=== PATIENT | female | born 1950 | race Caucasian/White ===

== ENCOUNTER 2024-04-27 09:07 | Emergency (ER) | payer MEDICARE, OTHER, SELFPAY ==
[2024-04-27] VITALS (8 sets, daily range): BP systolic 97–158; BP diastolic 69–115; PULSE 75–91; BMI 33.1
[2024-04-27 10:04] LABS: Hematocrit 36.4 % (37.0-47.0); Hemoglobin 13.2 g/dL (12.0-16.0); Mean Corp Hgb Conc. 36.3 g/dL (33.0-37.0); Mean Corpuscular Hgb 32.5 pg (27.0-31.0); Mean Corpuscular Volume 89.7 fL (81.0-99.0); Mean Platelet Volume 11.2 fL (7.4-10.4); Platelet Count 218 10^3/uL (130-400); Red Blood Cell Count 4.06 10^6/uL (4.20-5.40); Red Cell Dist. Width 11.5 % (11.5-14.5); White Blood Cell Count 7.1 10^3/uL (4.8-10.8)
--- NOTE | 2024-04-27 10:20 | ED.GENMED ---
History of Present Illness
General
Chief Complaint: Fainting/Passed Out
Source: patient
Time Seen by Provider: 04/27/24 09:36
History of Present Illness
History of Present Illness:
73-year-old female with past medical history of hypertension presenting to the emergency department for evaluation after she was at [facility] and had a witnessed syncopal episode by her . Patient reports that she was sitting in the pew when she
started to feel lightheaded and felt as if her vision went white and then reports that he looked over and saw the patient slumped over towards the pew in front of them. Patient awoke after about 30 seconds and brought the patient
outside and into the car where she seemed still out of it. Upon arrival to the emergency department patient reports that she is fully asymptomatic and feels well. Patient does note the last 2 to 3 days she has felt a little bit fatigued and has
had some chills and some mild upper abdominal discomfort with some decreased oral intake to both solids and liquids. Patient states she actually feels a little bit better today than she did yesterday. No known sick contacts, recent travel or
recent antibiotics. Patient is unaware of any fevers at home. She reports good compliance with all medications although does note she did not take her antihypertensive medication today as she planned on doing that after getting home from [facility].
Past History
Past History
ED Past Medical History: HTN and Hypothyroidism
ED Past Surgical History: Appendectomy and Gynecological
Social History
Tobacco: Non-smoker
Alcohol: Occasional
Drug: None
Personal:
Living: with family
Employment: Employed
Review of Systems
Review of Systems
All Other Systems: ROS reviewed and negative except as documented in HPI and ROS
Phy Exam
Physical Exam
Physical Exam:
GENERAL: Alert , in no apparent distress
EYE: clear conjunctiva b/l
HEAD: NCAT
ENT: o/p clr, mmm.
CARDIAC: Regular rate and rhythm
LUNGS: Clear breath sounds bilaterally, no acute respiratory distress, no wheezes/rales/rhonchi
ABDOMEN: Soft, without focal tenderness, no r/g, no cvat
NEUROLOGICAL: Alert and oriented
SKIN: Warm and dry, skin intact.
MUSCULOSKELETAL: No edema, well perfused.
PSYCH: Normal and appropriate interaction.
Scores
Heart Failure Risk
Heart Failure Risk Score: Not Applicable
Heart Score for Chest Pain Patients
STEMI patient?: Not applicable
Withdrawal Assessment of Alcohol
Withdrawal Assessment Completed?: Not applicable
Course
Orders/Labs/Results
Orders:
Orders
04/27/24 09:44
Electrocardiogram (*1) Urgent
Reason for Study: Syncope
EKG- Treatment ONCE
04/27/24 09:56
CMP [Comprehensive Metabolic Panel] Urgent
Complete Blood Count/No Diff Urgent
04/27/24 10:07
Orthostatic VS- Treatment ONCE
04/27/24 10:21
Add On- LAB Urgent
Tests Added?: troponin
Abnormal Lab Results
04/27/24
09:56
RBC 4.06 L 10^6/uL
(4.20-5.40)
Hct 36.4 L %
(37.0-47.0)
MCH 32.5 H pg
(27.0-31.0)
MPV 11.2 H fL
(7.4-10.4)
Glucose 132 H mg/dl
(70-99)
Calcium 10.9 H mg/dl
(8.4-10.2)
AST 49 H U/L
(14-36)
ALT 61 H U/L
(0-35)
04/27/24 09:56
04/27/24 09:56
Vital Signs
Initial and Last Documented VS:
Initial Vital Signs
Temp Pulse Resp BP Pulse Ox
98.7 F 84 18 97/69 97
04/27/24 09:19 04/27/24 09:19 04/27/24 09:19 04/27/24 09:19 04/27/24 09:19
Last Documented Vital Signs
Temp Pulse Resp BP Pulse Ox
98.7 F 92 17 157/85 96
04/27/24 09:19 04/27/24 11:45 04/27/24 11:45 04/27/24 11:00 04/27/24 09:45
MDM/Problems Addressed
Differential Diagnosis Includes:
vagal event, cardiac dysrythmia/arrythmia, dehydration, electrolyte disturbance, covid/viral syndrome
MDM/Problems Addressed:
73-year-old female presenting to the emergency department for evaluation after syncopal event while at [facility] earlier this morning. Presently asymptomatic. Over the last couple of days has been feeling a little unwell with some decreased p.o.
intake. Certainly possible some mild dehydration. Patient states she did have a half a cup of coffee and Ensure prior to going to [facility] today. She is afebrile and otherwise hemodynamically stable here. Slightly hypertensive. Will check labs,
EKG, troponin given the upper abdominal discomfort yesterday, COVID and orthostatic vitals. Anticipate discharge home following workup.
Chronic conditions affecting care: HTN
*Pulse Oximetry
Patient hypoxic: no
*EKG
Interpreted by ED Provider?: Yes
Heart Rate: 76
Rate: normal
Rhythm: sinus
Ischemia: no ischemia
*Wood Miller Interpretation
Rate: normal
Rhythm: sinus
*Critical Care Note
Total Time (30-74mins, 75-104mins- exclusive of procedures): Not Applicable
Data Reviewed
Review of Other/Old Records Reveals: Labs (appears to have a mild chronic LFT elevation)
Patient Management
Escalation/DeEscalation of care consider admission/obs:
Following IV fluids patient is feeling significantly better. She feels comfortable being discharged home. Advised on close follow-up with primary care provider. Discussed return precautions to the emergency department. Otherwise stable for
discharge home.
ED Attending Note
-
Portions of this chart may have been created with voice recognition software.� Occasional wrong word or��sound alike� substitutions may have occurred due to the inherent limitations of voice recognition software.
Discharge Plan
Departure
Patient Disposition: Home (Routine Discharge)
Date of Disposition: 04/27/24
Time of Disposition: 12:04
Patient with high blood pressure during this ER visit?: Yes
Discharge Problem:
Syncope
Instructions: Syncope (Fainting) (DC)
Prescriptions:
No Action
levothyroxine 75 MCG tablet
75 mcg PO DAILY
lisinopril 10 MG tablet
10 mg PO DAILY
Referrals:
Priscilla Campoverde MD [Family Provider] -
Stand Alone Forms: Return to Work
Interventions
Interventions:
*Risk Screen - Suicide Last Done: 04/27/24 09:19
*General Assessment Last Done: 04/27/24 09:19
*Neglect/Abuse Screening Last Done: 04/27/24 09:19
ED- Fall Risk Assessment Last Done: 04/27/24 09:45
*ED COVID-19 Vaccine History Last Done: 04/27/24 09:45
ED- Cardiac Assessment Last Done: 04/27/24 09:57
ED- Neurological Assessment Last Done: 04/27/24 09:57
Discharge Date and Time
Print Language: PAKISTANI
[2024-04-27 10:23] LABS: ALT (SGPT) 61 U/L (0-35); AST (SGOT) 49 U/L (14-36); Alkaline Phosphatase 86 U/L (38-126); Blood Urea Nitrogen 10 mg/dl (7-17); Calcium 10.9 mg/dl (8.4-10.2); Carbon Dioxide 25 mmol/L (22-30); Chloride 107 mmol/L (98-107); Estimated Creatinine Clearance 67 ml/min; Glucose 132 mg/dl (70-99); Sodium 139 mmol/L (135-145); Total Bilirubin 0.8 mg/dl (0.2-1.3); Total Protein 6.4 g/dl (6.3-8.2); eGFR > 60.00
--- NOTE | 2024-04-27 10:42 | EDRN ---
[place] too ' woozy' to stand
== END 2024-04-27 12:34 | disposition home or self-care (01) ==
LOC: EMR 09:07
PROVIDERS: Physician Assistant Medical; EMERGENCY PHYSICIAN Emergency Medicine; FAMILY PHYSICIAN Family Medicine
DX: R55 Syncope and collapse (principal); R10.10 Upper abdominal pain, unspecified; I10 Essential (primary) hypertension; E03.9 Hypothyroidism, unspecified; Z91.018 Allergy to other foods
CPT/HCPCS: 99283; 80053; 85027; 93005

== ENCOUNTER 2024-05-03 10:12 | Emergency (ER) | payer MEDICARE, OTHER, SELFPAY ==
[2024-05-03] VITALS (7 sets, daily range): BP systolic 141–165; BP diastolic 84–94; BMI 32.7
--- NOTE | 2024-05-03 10:44 | ED.GENMED ---
History of Present Illness
General
Chief Complaint: Chest Pain
Source: patient
Exam Limitations: none
Time Seen by Provider: 05/03/24 10:44
Nursing documentation reviewed up to this point in time: agreed with
History of Present Illness
History of Present Illness:
This is a 73 y/o female with PMH of hypertension, hypothyroidism presenting to emergency department today with concerns of chest pain since this morning. Patient reports that she woke up this morning and started to feel a bit dizzy which she
describes as a room spinning sensation. Patient states that she than went to the bathroom and she then started to feel chest pain in the middle of her chest. She states that her gave her aspirin and she states that this improve the pain
but then eventually the pain came back on. Patient denies any nausea or vomiting, any syncopal episodes. Patient denies any difficulty with ambulating. Patient also notes left arm paresthesias that started this morning with these other symptoms.
Patient denies palpitations, shortness of breath. Patient denies personal history of cardiac disease. Patient denies neck pain. Patient does not regularly follow with a primary care provider. Patient does nont smoke. Patient denies any visual
changes.
Past History
Past History
ED Past Medical History: HTN and Hypothyroidism
ED Past Surgical History: Appendectomy and Gynecological
Social History
Tobacco: Non-smoker
Alcohol: Occasional
Drug: None
Personal:
Living: with family
Employment: Employed
Review of Systems
Review of Systems
All Other Systems: ROS reviewed and negative except as documented in HPI and ROS
Phy Exam
Physical Exam
Physical Exam:
General: Patient is well appearing and in no acute distress; non-toxic
Skin: Warm and dry, no rashes or lesions
Head: Normocephalic, atraumatic
Eyes: Sclera non-icteric. EOMs intact. No nystagmus.
Cardiac: Regular rate and rhythm, no murmurs. Mild tenderness to palpation of the external chest wall.
Pulm: Normal respiratory effort, no wheezes, rales, or rhonchi.
Abdomen: No abdominal tenderness to palpation to palpation.
Neuro: CN II-XII intact, no focal neurologic deficits. Sensation intact to light touch bilaterally. Sensation equal bilaterally. Normal gait, no ataxia. 5/5 strength in bilateral upper and lower extremities.
Psychiatric: Appropriate mood and affect.
Scores
NIH Stroke Score
Level of Consciousness: 0 - Alert
LOC Questions: 0-Answers both correctly
LOC Commands: 0-Performs both correctly
Best Horizontal Gaze: 0-Normal
Visual Ortega: 0=Normal, no visual loss
Facial Palsy: 0=Normal, symmetrical
Motor - Right Arm: 0=No drift 10 seconds
Motor - Left Arm: 0=No drift 10 seconds
Motor - Right Le-No drift 5 seconds
Motor - Left Le-No drift 5 seconds
Limb Ataxia: 0-Absent
Sensation: 0-Normal
Best Language: 0-No aphasia
Dysarthria: 0-Normal
Extinction and Inattention: 0-No abnormality
Total Score:: 0
Heart Score for Chest Pain Patients
STEMI patient?: No
History: Slightly or Non-Suspicious
ECG: Normal
Age: >/= 65 years
Risk Factors: 1 or 2 Risk Factors
Troponin: </= Normal Limit
Heart Score for Chest Pain Patients: 3
Heart Score Risk: 2.5% MACE over next 6 weeks
Course
Orders/Labs/Results
Orders:
Orders
05/03/24 10:14
Electrocardiogram (*1) Urgent
Reason for Study: Chest Pain
EKG- Treatment ONCE
05/03/24 10:43
CXR2 [CR Chest - 2 Views ] Urgent
Comment:
Reason For Exam: chest pain with SOB
05/03/24 10:46
Complete Blood Count/With Diff Urgent
Comprehensive Metabolic Panel Urgent
Troponin I Urgent
05/03/24 12:10
Cardiac Monitoring- Treatment ONCE
05/03/24 13:21
CT Head & Neck Angio W/wo IV Urgent
Reason For Exam: persistent vertigo, left arm numbness
05/03/24 13:31
Troponin I Urgent
05/03/24 13:43
Electrocardiogram (*1) Urgent
Reason for Study: Chest Pain
Abnormal Lab Results
05/03/24
10:46
RBC 4.08 L 10^6/uL
(4.20-5.40)
Hct 36.1 L %
(37.0-47.0)
MCH 32.4 H pg
(27.0-31.0)
MPV 11.6 H fL
(7.4-10.4)
Absolute Monos (auto) 1.1 H 10^3/uL
(0.1-0.6)
Neutrophils % 38.3 L %
(42.2-75.2)
Monocytes % 13.7 H %
(1.7-9.3)
Eosinophils % 6.8 H %
(0-6)
Calcium 11.1 H mg/dl
(8.4-10.2)
AST 61 H U/L
(14-36)
ALT 74 H U/L
(0-35)
05/03/24 10:46
05/03/24 10:46
Vital Signs
Initial and Last Documented VS:
Initial Vital Signs
Temp Pulse Resp BP Pulse Ox
98.3 F 83 20 150/84 95
05/03/24 10:27 05/03/24 10:27 05/03/24 10:27 05/03/24 10:27 05/03/24 10:27
Last Documented Vital Signs
Temp Pulse Resp BP Pulse Ox
98.5 F 81 18 149/94 95
05/03/24 13:00 05/03/24 14:45 05/03/24 14:45 05/03/24 14:43 05/03/24 14:45
MDM/Problems Addressed
Differential Diagnosis Includes:
ddx include ACS, posterior circulation stroke, carotid stenosis, BPPV, cervical radiculopathy costochondritis
MDM/Problems Addressed:
Dizziness, chest pain, paresthesias:
This is a 73 y/o female with PMH of hypertension, hypothyroidism presenting to emergency department today with concerns of chest pain since this morning. Patient reports that she woke up this morning and started to feel a bit dizzy which she
describes as a room spinning sensation. Patient states that she than went to the bathroom and she then started to feel chest pain in the middle of her chest. Patient also has left arm paresthesias.
Currently, she has no vertigo. It comes and goes. On exam, she is well appearing and in no acute distress. Heart RRR. She has no nystagmus, normal gate, no dysmetria. Her CBC and CMP unremarkable. Troponin's non-suspicious for ACS. EKG shows normal
sinus rhythm unchanged from prior EKG. Considering patients persistent vertigo and left paresthesias, CTA of head and neck was obtained which is negative for head bleed, negative for significant narrowing of vessels. I spoke to Dr. Finley neurologist
deputy controller and reviewed case, believes patient can be discharged and followed as an outpatient, no indication for full stroke work up at this time.
In terms of patient's chest pain, patient has never been evaluated by a collar baster jumpb[facility] before. Discussed with patient her risk factors and importance of full evaluation. Patient expressed understanding, hotline provided. Patient stable for
discharge.
*Pulse Oximetry
Patient hypoxic: no
*EKG
Interpreted by ED Provider?: Yes
EKG Intrepretation Date: 05/03/24
Interpretation: normal
Comparison EKG: no comparison EKG present
Heart Rate: 79
Rate: normal
Rhythm: sinus
[place]: normal axis
Interval: normal interval
QRS Pattern: normal QRS
Ischemia: no ischemia
*Clinical Pharmacy Technician Interpretation
Rate: normal
Interpretation: normal
Heart Rate: 75
Rhythm: sinus
*Critical Care Note
Total Time (30-74mins, 75-104mins- exclusive of procedures): Not Applicable
Data Reviewed
Review of Other/Old Records Reveals: Records (reviewed ER physician documentation from 04/27/24)
Source: patient and records
Prescriptions/Medications Considered But Not Given:
n/a
Further Testing Considered But Not Given:
n/a
Patient Management
Escalation/DeEscalation of care consider admission/obs:
Reviewed case with my attending Dr. Garcia, patient stable for discharge.
ED Attending Note
-
Portions of this chart may have been created with voice recognition software.� Occasional wrong word or��sound alike� substitutions may have occurred due to the inherent limitations of voice recognition software.
Discharge Plan
Departure
Patient Disposition: Home (Routine Discharge)
Date of Disposition: 05/03/24
Time of Disposition: 14:55
Patient with high blood pressure during this ER visit?: Yes
Condition: Good
Discharge Problem:
Chest pain, Dizziness
Instructions: Dizziness, Adult ED, Chest Pain CBC Follow Up, BLOOD PRESSURE
Prescriptions:
No Action
levothyroxine 75 MCG tablet
75 mcg PO DAILY
lisinopril 10 MG tablet
10 mg PO DAILY
Referrals:
Priscilla Campoverde MD [Family Provider] -
Stand Alone Forms: Return to Work
Activity Restrictions/Additional Instructions:
Please call the attached number to schedule appointment with collar baster jumpb[facility].
Please follow up with your primary care provider.
Please return to the emergency department should you experience new or worsening symptoms, shortness of breath, lightheadedness, persistent headache, neck pain, visual loss, fevers or chills, or any other concerning signs or symptoms.
Interventions
Interventions:
*Risk Screen - Suicide Last Done: 05/03/24 10:47
*General Assessment Last Done: 05/03/24 10:47
*Neglect/Abuse Screening Last Done: 05/03/24 10:47
ED- Fall Risk Assessment Last Done: 05/03/24 10:47
*ED COVID-19 Vaccine History Last Done: 05/03/24 10:47
*Nursing Disposition Last Done: 05/03/24 15:03
ED- Cardiac Assessment Last Done: 05/03/24 10:47
Discharge Date and Time
Discharge Date/Time: 05/03/24 15:58
Print Language: ARABIC
[2024-05-03 11:12] LABS: % Basophils 1.4 % (0-2); % Eosinophils 6.8 % (0-6); % Immature Granulocytes 0.3 % (0-0.5); % Lymphocytes 39.5 % (20.5-51.1); % Monocytes 13.7 % (1.7-9.3); % Neutrophils 38.3 % (42.2-75.2); Absolute Basophils 0.1 10^3/uL (0-0.2); Absolute Eosinophils 0.5 10^3/uL (0-0.7); Absolute Lymphocytes 3.1 10^3/uL (1.2-3.4); Absolute Monocytes 1.1 10^3/uL (0.1-0.6); Hematocrit 36.1 % (37.0-47.0); Hemoglobin 13.2 g/dL (12.0-16.0); Mean Corp Hgb Conc. 36.6 g/dL (33.0-37.0); Mean Corpuscular Hgb 32.4 pg (27.0-31.0); Mean Corpuscular Volume 88.5 fL (81.0-99.0); Mean Platelet Volume 11.6 fL (7.4-10.4); Nucleated Red Blood Cells % 0 %; Platelet Count 226 10^3/uL (130-400); Red Blood Cell Count 4.08 10^6/uL (4.20-5.40); Red Cell Dist. Width 11.6 % (11.5-14.5); White Blood Cell Count 7.8 10^3/uL (4.8-10.8)
[2024-05-03 11:26] LABS: ALT (SGPT) 74 U/L (0-35); AST (SGOT) 61 U/L (14-36); Albumin 4.1 g/dl (3.5-5.0); Alkaline Phosphatase 85 U/L (38-126); Blood Urea Nitrogen 14 mg/dl (7-17); Calcium 11.1 mg/dl (8.4-10.2); Carbon Dioxide 27 mmol/L (22-30); Chloride 106 mmol/L (98-107); Estimated Creatinine Clearance 78 ml/min; Glucose 93 mg/dl (70-99); Potassium 4.2 mmol/L (3.5-5.1); Sodium 142 mmol/L (135-145); Total Bilirubin 0.9 mg/dl (0.2-1.3); Total Protein 6.6 g/dl (6.3-8.2); eGFR > 60.00
[2024-05-03 11:39] LABS: Troponin I 0.014 ng/ml
[2024-05-03 14:11] LABS: Troponin I 0.023 ng/ml
--- NOTE | 2024-05-03 14:12 | EDRN ---
second troponin came back elevated, this RN notified [facility]
--- NOTE | 2024-05-03 15:08 | EDRN ---
the pts stated to this RN as this RN was giving him discharge instructions that he just felt the right side of his 's neck and found a lump that he states he can feel and he is wondering if that has anything to do with the dizziness that
she is experiencing, this RN will notify [facility], the pt and the pts do not want to leave until the pt gets reevaluated, the pt is sitting on the chair, will continue to monitor the pt closely
--- NOTE | 2024-05-03 15:24 | EDRN ---
[facility] is currently at the pts bedside speaking with the pt and the pts
== END 2024-05-03 15:58 | disposition home or self-care (01) ==
LOC: EMR 10:12
PROVIDERS: Physician Assistant; EMERGENCY PHYSICIAN Emergency Medicine; FAMILY PHYSICIAN Family Medicine
DX: R07.89 Other chest pain (principal); R42 Dizziness and giddiness; R20.0 Anesthesia of skin; R22.1 Localized swelling, mass and lump, neck; I10 Essential (primary) hypertension; E03.9 Hypothyroidism, unspecified; Z91.018 Allergy to other foods
CPT/HCPCS: 99285; 70496; 70498; 71046; 80053; 84484; 85025; 93005; Q9967

== ENCOUNTER 2024-05-10 10:46 | Inpatient (IN) | payer MEDICARE, OTHER, SELFPAY ==
[2024-05-06] VITALS (10 sets, daily range): BP systolic 90–129; BP diastolic 63–82; PULSE 79–98; BMI 33.6; BMI 32.0
[2024-05-06 13:09] LABS: % Basophils 1.1 % (0-2); % Eosinophils 5.1 % (0-6); % Immature Granulocytes 0.3 % (0-0.5); % Lymphocytes 45.7 % (20.5-51.1); % Monocytes 12.3 % (1.7-9.3); % Neutrophils 35.5 % (42.2-75.2); Absolute Basophils 0.1 10^3/uL (0-0.2); Absolute Eosinophils 0.4 10^3/uL (0-0.7); Absolute Lymphocytes 3.4 10^3/uL (1.2-3.4); Absolute Monocytes 0.9 10^3/uL (0.1-0.6); Absolute Neutrophils 2.7 10^3/uL (1.4-6.5); Hematocrit 35.8 % (37.0-47.0); Hemoglobin 12.8 g/dL (12.0-16.0); Mean Corp Hgb Conc. 35.8 g/dL (33.0-37.0); Mean Corpuscular Hgb 32.9 pg (27.0-31.0); Mean Platelet Volume 11.5 fL (7.4-10.4); Nucleated Red Blood Cells % 0 %; Platelet Count 215 10^3/uL (130-400); Red Blood Cell Count 3.89 10^6/uL (4.20-5.40); Red Cell Dist. Width 11.6 % (11.5-14.5); White Blood Cell Count 7.5 10^3/uL (4.8-10.8)
--- NOTE | 2024-05-06 13:39 | ED.GENMED ---
History of Present Illness
General
Chief Complaint: Fainting/Passed Out
Source: patient
Time Seen by Provider: 05/06/24 13:20
History of Present Illness
History of Present Illness:
73-year-old female presents to the emergency room after having a syncopal episode. Patient was sitting on her porch in a rocking chair when she began to feel unwell. She lightheaded and a sense of doom. She became diaphoretic unresponsive. She
quickly regained consciousness but then passed out again. She again regained consciousness and was complaints of chest pain. No edema sublingual nitro which made her worse. Paramedics arrived and found the patient presently hypotensive. She was
given a bolus of IV fluid. This is the third visit for the patient here to deal send emergency room the past couple weeks. She was last seen 3days ago for dizziness and chest pain. Patient had a follow-up appointment with cardiology yesterday. An
outpatient echo and stress test was ordered. Patient was prescribed medication but she does not know the names.
Past History
Past History
ED Past Medical History: HTN and Hypothyroidism
ED Past Surgical History: Appendectomy and Gynecological
Social History
Tobacco: Non-smoker
Alcohol: Occasional
Drug: None
Personal:
Living: with family
Employment: Employed
Phy Exam
Physical Exam
Physical Exam:
General: Awake, Alert, Oriented X3. No acute distress.
Vitals: unremarkable
Head: Atraumatic
Eyes: Pupils equal, EOMI
Throat: Airway intact, no exudates
Neck: Trachea midline
Lungs: Clear and equal b/l
Heart: Regular rate, no murmurs
Abd: Soft, Nontender, No pulsatile mass
Neuro: Cranial nerves intact, muscle strength equal bilaterally
Skin: Warm, dry, no rash
Extremities: pulses equal b/l, no edema
Course
Orders/Labs/Results
Orders:
Orders
05/06/24 12:43
Electrocardiogram (*1) Urgent
Reason for Study: Chest Pain
Cardiac Monitoring- Treatment ONCE
EKG- Treatment ONCE
IV Insert/Care/Rem.- Treatment PRN
O2 Therapy [RESP] Urgent
Titrate/Wean O2 to maintain O2 sat greater than (%): 90
Special Instructions: Maintain sats >/=90%
Pulse Ox/spot Check [RESP] Urgent
Quantity: 1
Special Instructions: ON ROOM AIR
05/06/24 12:51
Complete Blood Count/With Diff Urgent
05/06/24 13:38
CT Chest Angio W/wo Iv Contras Urgent
Comment:
Reason For Exam: chest pain, syncope, eval for dissection
Comprehensive Metabolic Panel Urgent
Troponin I Urgent
05/06/24 Dinner
Regular
At Your Request: Full Participation
Does patient need a safe tray?: No
05/06/24 18:01
Admit/Transfer Patient As Directed
Co-Sign Provider:
Level of Care: Observation services
Assign to:: Telemetry
Physician / Group: karine
Diagnosis: syncope
Reason for Telemetry: Chest Pain syndromes
Date to Stop Telemetry: 05/08/24
Time to Stop Telemetry: 11:00
PRN Pain Medication Management As Directed
May give lesser potent ordered pain med per pt: Yes
preference::
Protocol:: Medication orders for pain may be administered in a
manner that supports deferring to patient preference
when the pt is:
- Requesting an ordered lesser potent pain medication.
Least to most potent pain medications are defined
as: acetaminophen < NSAID < tramadol < opioids
(morphine, oxycodone, hydromorphone).
- Requesting a lesser dose of the same medication IF
ORDERED.
- Requesting a less intrusive route of administration
if both routes are prescribed by the provider (PO <
IV).
05/06/24 18:02
Code Status As Directed
Resuscitation Status: Full Code
05/06/24 19:15
Acetaminophen [Tylenol] 650 mg PO Q4HPRN PRN
05/06/24 19:15
Activity As Directed
Activity Level: As Tolerated
Orthostatic Vital Signs As Directed
Orthostatic VS Frequency: Daily
Vital Signs As Directed
Frequency: Per unit guidelines
DX Deep Vein Thrombosis Video Routine
05/06/24 19:35
Troponin I Q6H
05/06/24 20:00
Heparin 5,000 units SC Q12
05/07/24 01:15
Troponin I Q6H
05/07/24 06:00
Complete Blood Count/With Diff IN AM
Comprehensive Metabolic Panel IN AM
Levothyroxine [Synthroid] 75 mcg PO DAILY@0600
05/07/24 07:15
Troponin I Q6H
05/07/24 08:00
Aspirin Chewable [Low Strength Aspirin] 81 mg PO DAILY
ISOSORBIDE MONOnitrate ER [Imdur (Extended Release)] 30 mg PO DAILY
Metoprolol Xl [Toprol Xl] 25 mg PO DAILY
05/08/24 11:00
DC Protocol for Telemetry ONCE
Abnormal Lab Results
05/06/24 05/06/24
12:51 13:38
RBC 3.89 L 10^6/uL
(4.20-5.40)
Hct 35.8 L %
(37.0-47.0)
MCH 32.9 H pg
(27.0-31.0)
MPV 11.5 H fL
(7.4-10.4)
Absolute Monos (auto) 0.9 H 10^3/uL
(0.1-0.6)
Neutrophils % 35.5 L %
(42.2-75.2)
Monocytes % 12.3 H %
(1.7-9.3)
Glucose 105 H mg/dl
(70-99)
Calcium 10.8 H mg/dl
(8.4-10.2)
AST 44 H U/L
(14-36)
ALT 57 H U/L
(0-35)
05/06/24 13:36
05/06/24 13:38
Vital Signs
Initial and Last Documented VS:
Initial Vital Signs
Pulse Resp Pulse Ox
82 20 97
05/06/24 12:49 05/06/24 12:49 05/06/24 12:49
Last Documented Vital Signs
Temp Pulse Resp BP Pulse Ox
98.2 F 79 18 122/77 97
05/06/24 19:49 05/06/24 19:49 05/06/24 19:49 05/06/24 19:49 05/06/24 19:49
MDM/Problems Addressed
Differential Diagnosis Includes:
Vasovagal syncope, orthostatic hypotension, cardiac dysrhythmia
MDM/Problems Addressed:
Patient presents to the emergency room again for syncope. She has had no dysrhythmia on the monitor technician while here. Workups during previous ER visits for unremarkable. Labs today are also unremarkable. Given the patient has had 2 syncopal
episodes and another visit for chest pain a CT angiogram was performed to exclude dissection or PE. This does not show any acute findings. We will hospitalize the patient for observation given her recurrent symptoms.
*Radiology
Radiology exam reviewed: radiology read reviewed
*Pulse Oximetry
Patient hypoxic: no
*EKG
Interpreted by ED Provider?: Yes
Comparison EKG: no changes
Heart Rate: 77
Rate: normal
Rhythm: sinus
[place]: normal axis
Interval: normal interval
QRS Pattern: normal QRS
Ischemia: no ischemia
*Analog Ic Design Architect Interpretation
Rate: normal
Interpretation: normal
Heart Rate: 77
Rhythm: sinus
*Critical Care Note
Total Time (30-74mins, 75-104mins- exclusive of procedures): Not Applicable
ED Attending Note
-
Portions of this chart may have been created with voice recognition software.� Occasional wrong word or��sound alike� substitutions may have occurred due to the inherent limitations of voice recognition software.
Discharge Plan
Departure
Patient Disposition: Admit
Date of Disposition: 05/06/24
Time of Disposition: 16:52
Admit to: Telemetry
Presentation/result/management discussed w/ accepting MD/DO: Hospitalist
Discharge Problem:
Syncope, Chest pain
Interventions
Interventions:
*Risk Screen - Suicide Last Done: 05/06/24 12:52
*Neglect/Abuse Screening Last Done: 05/06/24 12:52
ED- Fall Risk Assessment Last Done: 05/06/24 13:17
*ED COVID-19 Vaccine History Last Done: 05/06/24 12:52
*Nursing Disposition Last Done: 05/06/24 19:04
ED- Cardiac Assessment Last Done: 05/06/24 13:17
ED- Neurological Assessment Last Done: 05/06/24 13:17
Discharge Date and Time
Discharge Date/Time: 05/06/24 19:05
[2024-05-06 14:23] LABS: ALT (SGPT) 57 U/L (0-35); AST (SGOT) 44 U/L (14-36); Albumin 3.8 g/dl (3.5-5.0); Alkaline Phosphatase 86 U/L (38-126); Blood Urea Nitrogen 14 mg/dl (7-17); Calcium 10.8 mg/dl (8.4-10.2); Carbon Dioxide 27 mmol/L (22-30); Chloride 105 mmol/L (98-107); Estimated Creatinine Clearance 68 ml/min; Glucose 105 mg/dl (70-99); Potassium 4.4 mmol/L (3.5-5.1); Sodium 140 mmol/L (135-145); Total Bilirubin 0.6 mg/dl (0.2-1.3); Total Protein 6.3 g/dl (6.3-8.2); eGFR > 60.00
[2024-05-06 14:25] LABS: Troponin I 0.027 ng/ml
--- NOTE | 2024-05-06 18:03 | HPS.HSE ---
Family Physician
-
Family Physician: Priscilla Campoverde
Chief Complaint
-
syncope, chest pain
History of Present Illness
73-year-old female past medical history of hypertension, hypothyroidism presenting for syncopal episode. She was sitting on her porch in a rocking chair when she began to feel unwell. She felt lightheaded and a sense of doom. She became sweaty
and unresponsive. She quickly regained consciousness but then passed out again. When she regained consciousness again she was complaining of chest pain. She took sublingual nitroglycerin which made it worse. Paramedics arrived and found patient
hypotensive. She was given IV fluids.
This is her third visit patient has come to the emergency room for chest pain. She was seen 3 days ago for dizziness and chest pain. She states that the chest pain is described as pressure associated with sweating and shortness of breath and
dizziness. She has also been having dizziness and unsteadiness when she stands up. When she came to the emergency room 3 days ago chest pain was radiating to her left arm with numbness and tingling in her left arm. Chest pain is intermittent
although she denies any chest pain currently.
She has some headache currently. Denies any other symptoms.
She had a syncopal episode 2 weeks ago as well.
She had follow-up appoint with cardiology Dr. Don yesterday who ordered outpatient echocardiogram and stress test. She was started on isosorbide mononitrate and metoprolol at that time. Stress test is scheduled for tomorrow at around noon.
She drinks alcohol occasionally. She denies smoking.
Her father had heart attack and pacemaker.
Medical History
Past Medical History
Past Medical History: Reports Other (hypertension, hypothyroidism)
Past Surgical History: Reports Other (Appendectomy and Gynecological)
Social History
Tobacco: Non-smoker
Alcohol: Occasional
Drug: None
Family History
Family History: CAD (father )
Allergies / Home Medications
Allergies reflects when Allergies were last updated in [facility].
Home Medications with original date entered in [facility]
Allergy/Medication List:
Allergies
Allergy/AdvReac Type Severity Reaction Status Date / Time
melon Allergy Tongue Verified 04/27/24 09:44
Swelling
No Known Drug Allergies Allergy Unknown Verified 04/27/24 09:44
strawberry Allergy Tongue Verified 04/27/24 09:44
Swelling
Home Medications
levothyroxine 75 mcg tablet 75 mcg PO DAILY 07/11/16
lisinopril 10 mg tablet 10 mg PO DAILY 07/11/16
aspirin 81 mg chewable tablet 81 mg PO DAILY 05/06/24
isosorbide mononitrate 30 mg tablet,extended release 24 hr 30 mg PO DAILY 05/06/24
metoprolol succinate 25 mg tablet,extended release 24 hr 25 mg PO DAILY 05/06/24
Review of Systems
-
History Source: Patient
A 12 point ROS was completed and negative except as noted: Yes
Constitutional: Reports No Symptoms
EENT: Reports No Symptoms
Respiratory: Reports See HPI
Cardiac: Reports See HPI
Abdomen/GI: Reports No Symptoms
: Reports No Symptoms
Musculoskeletal: Reports No Symptoms
Skin: Reports No Symptoms
Neurological: Reports No Symptoms
Endocrine: Reports No Symptoms
Hematologic/Lymphatic: Reports No Symptoms
Psych: Reports No Symptoms
Physical Exam
Vital Signs
Vital Signs
Temp Pulse Resp BP Pulse Ox
98 F 77 15 103/73 96
05/06/24 12:58 05/06/24 15:30 05/06/24 15:30 05/06/24 13:30 05/06/24 15:30
Physical Exam
General: Well Developed, Well Nourished and No Apparent Distress
HEENT: NormoCephalic, Moist mucous membranes and Atraumatic
Respiratory: Clear
Cardiac: S1/S2 and Regular Rhythm; No Murmur or Rub
GI: Soft, Non Tender, Non Distended and Normal Bowel Sounds; No Organomegaly
Rectal: Deferred by Provider
Musculoskeletal: No Clubbing, No Cyanosis and No Edema
Skin: No Rash
Neuro: Nonfocal/grossly intact
Laboratory Results
-
05/06/24 13:36
05/06/24 13:38
Laboratory Results
Total Bilirubin 0.6 mg/dl (0.2-1.3) 05/06/24 13:38
AST 44 U/L (14-36) H 05/06/24 13:38
ALT 57 U/L (0-35) H 05/06/24 13:38
Alkaline Phosphatase 86 U/L (38-126) 05/06/24 13:38
Troponin I 0.027 ng/ml 05/06/24 13:38
Data Reviewed
-
Lab Data: Labs Reviewed by me
Old Records: Reviewed
Impression/Plan
-
IMPRESSION:
PLAN:
# Syncopal episodes
# Recurrent chest pain concerning for unstable angina
# Possible orthostatic hypotension
-EKG shows normal sinus rhythm
-CTA chest abdomen pelvis does not show aortic dissection or pulm embolism
-Telemetry monitoring
-Trend troponins
-Likely some component of orthostatic hypotension contributing to syncope given worsening after nitroglycerin and recent addition of isosorbide/metoprolol
-Check orthostatic vitals
-Hold lisinopril
-Continue metoprolol
-Continue isosorbide mononitrate
-Continue aspirin
-Cardiology consulted
# Mild hypercalcemia
-Check PTH, vitamin D
Chronic transaminitis
-Stable
Essential hypertension
-Hold lisinopril
-Continue metoprolol
Hypothyroidism
-Continue levothyroxine
Full code
DVT prophylaxis�heparin
Regular diet
[2024-05-06] MEDS: HEPARIN 5000 UNITS SC (19:53)
--- NOTE | 2024-05-06 20:00 | PTCARENOTE ---
Pt arrived to floor via stretcher from the ED. Pt able to ambulate from stretcher to room without difficulty. Pt used bathroom, and settled into bed per comfort. Pt denies any complaints of dizziness, lightheadedness, or chest pain at this time. Pt
AAOx3. HR in the 70's in NSR on the monitor. POX 98% on RA. Lungs clear. + bowel. Round abd. Palpable pulses. Right AC int capped. Call martin in reach. Will continue to monitor.
[2024-05-06 20:07] LABS: Troponin I 0.026 ng/ml
[2024-05-07 01:22] LABS: Troponin I < 0.012 ng/ml
[2024-05-07 03:50] VITALS: BP 144/88
--- NOTE | 2024-05-07 05:10 | PTCARENOTE ---
Assumed care of patient at 02:30. Pt. resting in bed comfortably. Plan of care ongoing.
[2024-05-07] MEDS: SYNTHROID 75 MCG PO (05:24)
[2024-05-07 07:00] VITALS: BP 125/88
[2024-05-07 07:21] LABS: % Basophils 0.9 % (0-2); % Eosinophils 5.1 % (0-6); % Immature Granulocytes 0.5 % (0-0.5); % Lymphocytes 32.5 % (20.5-51.1); % Monocytes 11.3 % (1.7-9.3); % Neutrophils 49.7 % (42.2-75.2); Absolute Basophils 0.1 10^3/uL (0-0.2); Absolute Eosinophils 0.4 10^3/uL (0-0.7); Absolute Lymphocytes 2.5 10^3/uL (1.2-3.4); Absolute Monocytes 0.9 10^3/uL (0.1-0.6); Absolute Neutrophils 3.9 10^3/uL (1.4-6.5); Hematocrit 35.6 % (37.0-47.0); Hemoglobin 12.5 g/dL (12.0-16.0); Mean Corp Hgb Conc. 35.1 g/dL (33.0-37.0); Mean Corpuscular Hgb 31.6 pg (27.0-31.0); Mean Corpuscular Volume 89.9 fL (81.0-99.0); Mean Platelet Volume 11.1 fL (7.4-10.4); Nucleated Red Blood Cells % 0 %; Platelet Count 202 10^3/uL (130-400); Red Blood Cell Count 3.96 10^6/uL (4.20-5.40); Red Cell Dist. Width 11.6 % (11.5-14.5); White Blood Cell Count 7.8 10^3/uL (4.8-10.8)
[2024-05-07 07:39] LABS: Troponin I < 0.012 ng/ml
--- NOTE | 2024-05-07 08:02 | CON.CAR ---
Addendum entered and electronically signed by Levi Mason MD 05/07/24 12:46:
I saw and examined the patient.
The CUSTOMER SUCCESS ADVOCATE's note was reviewed and I agree with the note.
73-year-old female with history of hypertension hypercholesterolemia hypothyroidism and thoracic aortic ectasia who presents with syncope in addition patient's had some chest discomfort/chest tightness
Episode of syncope in [facility] 3 weeks ago. Patient reports vision went white and said she kind of slumped over recovered and was brought outside and had a recurrent episode while sitting on a bench. ER evaluation unremarkable. Yesterday
patient was seated and could tell she started not to feel well and started to tell her that she needed to go back to the hospital and then had a syncopal episode now brought to the ER for evaluation. In sinus rhythm with no arrhythmias ECG
otherwise unremarkable. In addition to the above patient's had some intermittent chest discomfort this past week at least 4 episodes of chest tightness episodes last for 5 minutes. She has had some episodes at rest and other episodes while working
in the kitchen. It is not clear that she can make it happen. No additional associated symptoms including no palpitations heart racing or presyncopal symptoms. She had been seen by Dr. Don and additional testing for chest discomfort was ordered
which she has not had yet..
.
Syncope. Exact etiology unclear. Chest CT was negative for pulmonary embolism. ECG shows sinus rhythm without clear evidence of conduction disease. Telemetry so far unremarkable
-Echo
-Telemetry
Chest discomfort/chest tightness recurrent episodes this past week etiology unclear description raises some concern for angina. With combination of chest discomfort and recurrent episodes of syncope I think we need to definitively evaluate for
obstructive coronary artery disease. Cardiac catheterization recommended
Original Note:
Consultation
Consultation Request
Date/Time Consultation Requested: 05/06/24 1228
Date/Time Consultation Performed: 05/07/24 0800
Requesting Provider: Dr. Gregg
Performing Provider: Delmi COLEMAN for Dr. Mason
Reason for Consultation: syncope, chest pain
Medical History
-
Chief Complaint: syncope
History of Present Illness:
73 y/o female with hypertension, dyslipidemia, hypothyroidism, thoracic aortic ectasia who recently saw Dr. Don as an outpatient for chest discomfort and syncope and was started on Imdur, aspirin, metoprolol, and atorvastatin (started those meds
yesterday) but who is here for evaluation after an episode of recurrent syncope 05/06/24. Briefly, she woke up yesterday feeling mildly unwell overall. She had a bandlike chest discomfort in the AM. She sat outside with her and while she was
in the chair, she reports she felt disoriented and said 'I think I need to go back to the hospital', then she lost consciousness. She remembers her family waking her up and they reported she said her chest hurt, though she can't recall this. She
took a nitro. EMS came and she remembers some of that. She says her BP was quite low. She is feeling fine now. She was admitted for further work-up. EKG, trop, and tele unremarkable so far. Chest CT showed no dissection or PE. Otherwise, she has had
this bandlike chest discomfort for months now. 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 There is associated mild SOB. Finally, she passed out 04/27/24 at
[facility] while kneeling, 'everything became white', then later that day on a bench. She remembers being sweaty. ER w/u was not remarkable. She came back to the ER on 05/03/24 because she had room spinning and left arm numbness.
Past Medical History
Past Medical History: HTN, Hypercholesterolemia, Hypothyroidism and Other (As above)
Social History
Tobacco: Non-Smoker
Alcohol: Occasional
Personal:
Living: With Family
Employment: Employed
Family History
Family History: Early CAD (dad, grandfather)
Allergies / Home Medications
Allergy/AdvReac Type Severity Reaction Status Date / Time
melon Allergy Tongue Verified 04/27/24 09:44
Swelling
No Known Drug Allergies Allergy Unknown Verified 04/27/24 09:44
strawberry Allergy Tongue Verified 04/27/24 09:44
Swelling
�Medication �Instructions �Recorded �Confirmed �Type
levothyroxine 75 mcg tablet 75 mcg PO DAILY 07/11/16 05/06/24 History
lisinopril 10 mg tablet 10 mg PO DAILY 07/11/16 05/06/24 History
aspirin 81 mg chewable tablet 81 mg PO DAILY 05/06/24 05/06/24 History
isosorbide mononitrate 30 mg 30 mg PO DAILY 05/06/24 05/06/24 History
tablet,extended release 24 hr
metoprolol succinate 25 mg 25 mg PO DAILY 05/06/24 05/06/24 History
tablet,extended release 24 hr
Review of Systems
-
History Source: Patient
All other systems: Negative unless noted
Cardiac: Chest Pain
Neurological: Other (syncope)
Physical Exam
Vital Signs
Temp Pulse Resp BP Pulse Ox
98.2 F 98 18 144/88 95
05/07/24 03:50 05/07/24 03:50 05/07/24 03:50 05/07/24 03:50 05/07/24 03:50
Lab Results
05/07/24 06:56
Troponin I < 0.012 ng/ml 05/07/24 06:56
Physical Exam
General: Well Developed, Well Nourished and No Apparent Distress
HEENT: Normocephalic and Anicteric
Respiratory: Clear and Non Labored Respirations
Cardiac: Regular Rhythm
Musculoskeletal: No Edema
Skin: Warm and Dry
Neuro: AO x 3
Psych: Calm
Impression / Plan
-
Syncope: 3 recent, recurrent episodes
-etiology unclear, though concerning (denies prodrome for kneeling episode)
-follow telemetry- unremarkable so far
-check echo today
-orthos last night unremarkable
Chest discomfort:
-possibly cardiac- sounds concerning for angina to my review (cardiac chest pain poses threat to life)
-trops and EKG's okay
-needs ischemic eval- will discuss with traffic maintenance supervisor
Dyslipidemia:
-check lipids
-continue statin (new medicine)
Hypothyroidism:
-continue replacement
-check TSH
HTN:
-lisinopril held, metoprolol and imdur continued
-follow BP's
Data Reviewed
-
EKG: Tracing Personally Visualized and interpreted (NSR 77 BPM)
CT Scan: Report Reviewed by me (CTA: No evidence of aortic dissection. There is dilation of the ascending aorta measuring up to 4.1 cm.)
Medical Tests (Nuc Med, Echo etc): Other (echo ordered by me)
Labs: Labs Reviewed by me
[2024-05-07] MEDS: IMDUR (EXTENDED RELEASE) 30 MG PO (08:18)
[2024-05-07] MEDS: LOW STRENGTH ASPIRIN 81 MG PO (08:18)
[2024-05-07] MEDS: HEPARIN 5000 UNITS SC ×2 (08:18→19:45)
[2024-05-07] MEDS: TOPROL XL 25 MG PO (08:18)
[2024-05-07 08:26] LABS: ALT (SGPT) 55 U/L (0-35); AST (SGOT) 41 U/L (14-36); Albumin 3.8 g/dl (3.5-5.0); Alkaline Phosphatase 87 U/L (38-126); Blood Urea Nitrogen 13 mg/dl (7-17); Calcium 10.4 mg/dl (8.4-10.2); Carbon Dioxide 23 mmol/L (22-30); Chloride 107 mmol/L (98-107); Estimated Creatinine Clearance 66 ml/min; Glucose 89 mg/dl (70-99); Potassium 4.4 mmol/L (3.5-5.1); Sodium 140 mmol/L (135-145); Total Bilirubin 0.9 mg/dl (0.2-1.3); Total Protein 6.2 g/dl (6.3-8.2); eGFR > 60.00
[2024-05-07 08:36] LABS: Vitamin D, 25-OH*** 51.4 ng/mL (30-80)
[2024-05-07 08:51] LABS: Calcium 10.4 mg/dl (8.4-10.2)
[2024-05-07 10:48] LABS: Intact PTH 49.4 pg/ml (13.6-85.8)
[2024-05-07 11:00] VITALS: BP 138/76
[2024-05-07] MEDS: ASPIRIN 325 MG PO (12:41)
--- NOTE | 2024-05-07 12:54 | W.PN.HOSP.TC ---
Today's Communication/Plan
-
Continue on telemetry
Continue with home medications
Plan for cath tomorrow, n.p.o. after midnight
Assessment / Plan
Assessment / Plan
#Recurrent syncope
-High suspicion for cardiac etiology based off of history of episodes, family history of sudden cardiac
-Additionally, she does have associated chest pain/arm pain which raises suspicion for more
-No ischemic ECG findings upon arrival, troponin negative x 3; orthostatic vital signs negative
-Home meds include beta-jenna, aspirin, ACEi, isosorbide but no CAD diagnosis
-Would rate her as a high pretest probability per symptoms and family history
-Cardiology following, agree with cardiac catheterization here
Plan
-Continue on telemetry pending coronary angiography
-Follow-up echocardiogram results
-Continue with home medications
#Hypercalcemia
-Unclear cause, low suspicion for primary etiology; PTH and vitamin D levels normal
-Cannot rule out paraneoplastic or granulomatous disease at this time
-No signs or symptoms associated with calcium, stable at 10.4-10.8
-Will continue to trend daily BMP while here
-Consider PTHrP and 1,25 OH-vitamin D level if worsening
#Hypothyroidism
-Unclear etiology, Home regimen includes levothyroxine 75 mcg daily
-No signs or symptoms of thyroid dysfunction as of this time
#Chronic transaminitis
-Very mildly elevated, AST 41 and ALT 55; remainder of LFTs normal
-Will continue to trend LFTs while here, consider RUQ US if worsening
DVT prophylaxis: Subcutaneous heparin
Diet: N.p.o. after midnight
CODE STATUS: Full code
Anticipated Discharge: 24 - 48 hours
Subjective/Interval History
-
Date of Service: May 07, 2024
Seen and examined at bedside. No acute events reported overnight. No acute events on telemetry.
When speaking with the patient, her symptoms are concerning for cardiac etiology. Has had multiple episodes of syncope over the last 10 days, have been occurring when sitting down. Her noted that 'gurgling' sound during 1 episode.
Additionally she has had associated arm and chest pain throughout episodes. She mentions that she has significant family history for cardiac disease including cardiac in her grandfather and other family members. SCD occurred in their 40s-50s
however.
As of this morning she denies any chest pain, shortness of breath, palpitations, fevers or chills, GI symptoms or urinary issues, paresthesias or weakness. She has not had any recurrent episodes of lightheadedness/syncope/presyncope since she was
admitted to the hospital.
Objective Data
-
Labs:
Laboratory Results
05/07/24 05/07/24
06:56 06:56
WBC 7.8
Hgb 12.5
Hct 35.6 L
Plt Count 202
Sodium 140
Potassium 4.4
Chloride 107
Carbon Dioxide 23
BUN 13
Creatinine 0.7
Glucose 89
Calcium 10.4 H 10.4 H
Total Bilirubin 0.9
AST 41 H
ALT 55 H
Alkaline Phosphatase 87
Vital Signs:
Vital Signs
Temp Pulse Resp BP Pulse Ox
98.2 F 83 16 138/76 96
05/07/24 03:50 05/07/24 11:00 05/07/24 11:00 05/07/24 11:00 05/07/24 11:00
I&O
05/06/24 05/07/24 05/08/24
06:59 06:59 06:59
Intake Total 480 / 480
Balance 480 / 480
Review of Systems
-
History Source: Patient
All other systems: Reviewed and negative
Physical Exam
-
General: Well Nourished, No Apparent Distress and Comfortable
HEENT: Normocephalic, Atraumatic, Moist Mucous Membranes and Anicteric
Respiratory: Clear to Auscultation and Non Labored Respirations; Negative Wheezes, Rales, Rhonchi or Accessory Resp Muscle Use
Cardiac: Regular Rhythm and S1/S2; Negative Murmur, Rub, JVD or Gallop
GI: Soft, Nontender, Nondistended and Normal Bowel Sounds
Musculoskeletal: No Clubbing, No Cyanosis and No Edema
Skin: Warm and Dry; Negative Rash
Neuro: AO x 3, Nonfocal/Grossly Intact and Central Nerve's Intact; Negative Tremors
Data Reviewed
-
Medical Tests (Nuc Med, Echo etc): Image personally visualized and interpreted and Discussed with Patient
Labs: Labs Reviewed by me and Discussed with Patient
--- NOTE | 2024-05-07 14:35 | CM ---
Reviewed chart, met with patient to obtain information for assessment. Patient stated that she lives with her spouse in a two story home with 4 steps to enter. Patient described herself as independent with her ADLs, personal care, dressing, bathing
and ambulates without device. 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 She drives and can get herself to all of her appointments and does her own shopping.
Patient denied any DME in her home.
She has not had VN.
She has not been to a SNF.
Patient has a prescription plan and uses, [facility] in [place].
Her PCP is, Priscilla Campoverde.
Patient signed OBS letter. Now on chart. She feels she will have no needs at discharge.
Plan: Case management will continue to follow and assist with discharge planning. Home when stable.
[2024-05-07 15:00] VITALS: BP 133/81
[2024-05-07 20:03] VITALS: BP 123/74
[2024-05-07 23:25] VITALS: BP 134/77
[2024-05-08] VITALS (12 sets, daily range): BP systolic 107–140; BP diastolic 65–89
[2024-05-08] MEDS: SYNTHROID 75 MCG PO (05:43)
[2024-05-08 07:30] LABS: Blood Urea Nitrogen 14 mg/dl (7-17); Calcium 10.8 mg/dl (8.4-10.2); Carbon Dioxide 25 mmol/L (22-30); Chloride 105 mmol/L (98-107); Estimated Creatinine Clearance 66 ml/min; Glucose 103 mg/dl (70-99); HDL Cholesterol 54 mg/dl; LDL Cholesterol, Calculated 107 mg/dl; Potassium 4.6 mmol/L (3.5-5.1); Sodium 143 mmol/L (135-145); Total Cholesterol 199 mg/dl (50-199); Triglyceride 190 mg/dl (10-149); Very Low Density Lipoprotein 38 mg/dl (0-30); eGFR > 60.00
[2024-05-08 07:48] LABS: % Basophils 1.2 % (0-2); % Eosinophils 5.2 % (0-6); % Immature Granulocytes 0.2 % (0-0.5); % Lymphocytes 44.7 % (20.5-51.1); % Monocytes 10.3 % (1.7-9.3); % Neutrophils 38.4 % (42.2-75.2); Absolute Basophils 0.1 10^3/uL (0-0.2); Absolute Eosinophils 0.5 10^3/uL (0-0.7); Absolute Lymphocytes 4.2 10^3/uL (1.2-3.4); Absolute Neutrophils 3.6 10^3/uL (1.4-6.5); Hematocrit 38.4 % (37.0-47.0); Hemoglobin 13.9 g/dL (12.0-16.0); Mean Corp Hgb Conc. 36.2 g/dL (33.0-37.0); Mean Corpuscular Hgb 32.3 pg (27.0-31.0); Mean Corpuscular Volume 89.3 fL (81.0-99.0); Mean Platelet Volume 11.5 fL (7.4-10.4); Nucleated Red Blood Cells % 0 %; Platelet Count 262 10^3/uL (130-400); Red Cell Dist. Width 11.6 % (11.5-14.5); White Blood Cell Count 9.3 10^3/uL (4.8-10.8)
[2024-05-08 08:07] LABS: TSH Reflex To Free T4 < 0.02 uIU/ml (0.47-4.68)
[2024-05-08] MEDS: IMDUR (EXTENDED RELEASE) 30 MG PO (08:07)
[2024-05-08] MEDS: TOPROL XL 25 MG PO (08:07)
[2024-05-08] MEDS: LOW STRENGTH ASPIRIN 81 MG PO (08:07)
[2024-05-08] MEDS: HEPARIN 5000 UNITS SC ×2 (08:07→19:39)
[2024-05-08 08:35] LABS: Free T4 1.01 ng/dl (0.78-2.19)
--- NOTE | 2024-05-08 11:52 | W.PN.HOSP.TC ---
Today's Communication/Plan
-
Follow-up coronary angiography
Workup for hypercalcemia ordered
Assessment / Plan
Assessment / Plan
#Recurrent syncope
-High suspicion for cardiac etiology based off of history of episodes, family history of sudden cardiac
-Additionally, she does have associated chest pain/arm pain which raises suspicion for more
-No ischemic ECG findings upon arrival, troponin negative x 3; orthostatic vital signs negative
-Home meds include beta-jenna, aspirin, ACEi, isosorbide but no CAD diagnosis
-Would rate her as a high pretest probability per symptoms and family history
-Echocardiogram yesterday was normal, preserved LVEF, normal valves and diastology
-Cardiology following, agree with cardiac catheterization here
Plan
-Continue on telemetry pending coronary angiography
-Continue with home medications
#Hypercalcemia
-Unclear cause, low suspicion for primary etiology; PTH and vitamin D levels normal
-Cannot rule out paraneoplastic or granulomatous disease at this time
-No signs or symptoms associated with calcium, stable at 10.4-10.8
Plan
-Will continue to trend daily BMP while here
-Order PTHrP and 1,25 OH-vitamin D level
-Ordered 24-hour urine calcium
#Hypothyroidism
-Unclear etiology, Home regimen includes levothyroxine 75 mcg daily
-No signs or symptoms of thyroid dysfunction as of this time
#Chronic transaminitis
-Very mildly elevated, AST 41 and ALT 55; remainder of LFTs normal
-Will continue to trend LFTs while here, consider RUQ US if worsening
DVT prophylaxis: Subcutaneous heparin
Diet: N.p.o. after midnight
CODE STATUS: Full code
Anticipated Discharge: 24 - 48 hours
Subjective/Interval History
-
Date of Service: May 08, 2024
Seen and examined at bedside. No acute events overnight. No acute events per telemetry.
She remains hemodynamically stable, afebrile, on room air. Plan for cardiac cath with coronary angiography today. Currently n.p.o.
She denies chest pain, fevers or chills, shortness of breath, lightheadedness, nausea, vomiting, diarrhea, urinary issues, abnormal bleeding or bruising, paresthesias or weakness. Her was at the bedside and I spoke with him about the
details of the procedure, let him know that if a blockage was found that he potentially could be opened up with a stent during the procedure.
Objective Data
-
Labs:
Laboratory Results
05/08/24
06:23
WBC 9.3
Hgb 13.9
Hct 38.4
Plt Count 262 D
Sodium 143
Potassium 4.6
Chloride 105
Carbon Dioxide 25
BUN 14
Creatinine 0.7
Glucose 103 H
Calcium 10.8 H
Vital Signs:
Vital Signs
Temp Pulse Resp BP Pulse Ox
98.9 F 82 18 127/83 97
05/08/24 07:50 05/08/24 08:07 05/08/24 07:50 05/08/24 08:07 05/08/24 08:00
I&O
05/07/24 05/08/24 05/09/24
06:59 06:59 06:59
Intake Total 480 / 480 780 / 780
Balance 480 / 480 780 / 780
Review of Systems
-
History Source: Patient
All other systems: Reviewed and negative
Physical Exam
-
General: Well Nourished, No Apparent Distress and Comfortable
HEENT: Normocephalic, Atraumatic and Moist Mucous Membranes
Respiratory: Clear to Auscultation and Non Labored Respirations; Negative Wheezes, Rales or Rhonchi
Cardiac: Regular Rhythm and S1/S2; Negative Murmur, Rub, JVD or Gallop
GI: Soft, Nontender, Nondistended and Normal Bowel Sounds
Musculoskeletal: No Clubbing, No Cyanosis and No Edema
Skin: Warm and Dry; Negative Rash
Neuro: AO x 3, Nonfocal/Grossly Intact and Central Nerve's Intact
Data Reviewed
-
Medical Tests (Nuc Med, Echo etc): Discussed with Family
Labs: Labs Reviewed by me and Discussed with Family
[2024-05-08 13:30] LABS: ACT-LR - POC 260 Seconds (116-155)
--- NOTE | 2024-05-08 14:05 | ITS.CL.CATH ---
[facility] - Catheterization
Cardiac Catheterization
Procedure Report:
CARDIAC CATHETERIZATION REPORT
Date of Procedure: 05/08/2024
Referring: Levi Mason MD
Indication: Chest pain with recurrent syncope
�
HEMODYNAMIC DATA
AO: 126/76
LV: 126/8
�
LEFT VENTRICULOGRAPHY: Normal left ventricular wall motion with EF 67%. There is mild to moderate dilation of the ascending aorta
�
CORONARY ANGIOGRAPHY
Dominance: Right
Left Main: Normal
LAD: 20-30% proximal to mid LAD stenosis with a 60% stenosis in the mid LAD distal to the takeoff of the large second diagonal branch. There is focal 30% distal LAD stenosis. The small D1 and large D2 have trivial luminal disease.
Circumflex: Trivial luminal irregularities
RCA: Dominant vessel with 30% mid stenosis. There is a secondary of 60-70% mid RCA stenosis just proximal to the crux. The large PDA has 30% ostial stenosis. The RCA terminates with several small to medium sized posterolateral branches
FloWire assessment: A decision was made to evaluate the LAD and RCA disease with iFR. A 6 [place] JL 4 guide was advanced to the left coronary ostium. Heparin was used for anticoagulation. A [place] wire was advanced into the distal LAD. iFR
measurements were 1.0, 1.0, and 1.0 all consistent with no flow limitation. The JL 4 guide was replaced with a JR4 guide and the [place] wire was advanced into the distal RCA. iFR measurements were 1.0 and 1.0. Again, these are consistent with no
flow limitation. The procedure was then concluded.
�
Closure Device: None-the procedure was performed via the right radial artery. The Jann's test was normal prior to the procedure.
�
Radiation (mGy): 220
DAP (cm2.Gy): 16.2
Fluoroscopy time: 7.5 minutes
�
CONCLUSIONS
1:�Normal left ventricular function with EF 67%
2:�Mild to moderate dilation of the ascending aorta. Of note, CTA done this admission measures the ascending aorta at 4.1 cm
3. Moderate CAD as described-iFR of the LAD and RCA disease shows these lesions are not flow-limiting
4. Continue evaluation for recurrent syncope. Will discuss placement of implantable loop recorder with the admitting cardiology team
�
�
Copy to: Wilfredo Don MD, Priscilla Campoverde MD
�
Jabari Scanlon MD, FAC, [facility]
[2024-05-08] MEDS: NSS 1000 IV (14:24)
[2024-05-08] MEDS: CRESTOR 20 MG PO (17:18)
[2024-05-09] VITALS (7 sets, daily range): BP systolic 99–136; BP diastolic 65–96; PULSE 97–110
[2024-05-09] MEDS: SYNTHROID 75 MCG PO (05:31)
[2024-05-09 08:11] LABS: % Basophils 1.4 % (0-2); % Eosinophils 5.3 % (0-6); % Immature Granulocytes 0.5 % (0-0.5); % Lymphocytes 36.3 % (20.5-51.1); % Monocytes 12.1 % (1.7-9.3); % Neutrophils 44.4 % (42.2-75.2); Absolute Basophils 0.1 10^3/uL (0-0.2); Absolute Eosinophils 0.4 10^3/uL (0-0.7); Absolute Lymphocytes 2.7 10^3/uL (1.2-3.4); Absolute Monocytes 0.9 10^3/uL (0.1-0.6); Absolute Neutrophils 3.3 10^3/uL (1.4-6.5); Hematocrit 36.4 % (37.0-47.0); Hemoglobin 13.3 g/dL (12.0-16.0); Mean Corp Hgb Conc. 36.5 g/dL (33.0-37.0); Mean Corpuscular Hgb 33.3 pg (27.0-31.0); Nucleated Red Blood Cells % 0 %; Platelet Count 207 10^3/uL (130-400); Red Cell Dist. Width 11.4 % (11.5-14.5); White Blood Cell Count 7.4 10^3/uL (4.8-10.8)
[2024-05-09 08:43] LABS: ALT (SGPT) 50 U/L (0-35); AST (SGOT) 40 U/L (14-36); Alkaline Phosphatase 90 U/L (38-126); Blood Urea Nitrogen 12 mg/dl (7-17); Calcium 10.7 mg/dl (8.4-10.2); Carbon Dioxide 25 mmol/L (22-30); Chloride 105 mmol/L (98-107); Direct Bilirubin 0.2 mg/dl (0.0-0.4); Estimated Creatinine Clearance 66 ml/min; Glucose 113 mg/dl (70-99); Potassium 4.2 mmol/L (3.5-5.1); Sodium 141 mmol/L (135-145); Total Bilirubin 0.7 mg/dl (0.2-1.3); Total Protein 6.5 g/dl (6.3-8.2); eGFR > 60.00
[2024-05-09] MEDS: HEPARIN 5000 UNITS SC ×2 (08:55→20:18)
[2024-05-09] MEDS: IMDUR (EXTENDED RELEASE) 30 MG PO (08:58)
[2024-05-09] MEDS: TOPROL XL 25 MG PO (08:58)
[2024-05-09] MEDS: LOW STRENGTH ASPIRIN 81 MG PO (08:58)
--- NOTE | 2024-05-09 10:59 | W.PN.CD ---
Addendum entered and electronically signed by Wilfredo Don MD 05/09/24 11:11:
-
-
Cardiology will sign off.
-
-
Original Note:
Today's Communication / Plan
-
Stop Imdur
No driving (pt aware)
Outpt Loop has been arranged
F/u arranged
Impression / Plan
-
Syncope: 3 recent, recurrent episodes
-will get a Loop Monitor (external)
- No drivig
Chest discomfort => cath with nonobstructive CAD
Dyslipidemia =>continue statin (new medicine)
Aorta 4.1, monitor. CT angio w/o dissection this admit
Hypothyroidism: TSH low but T4 is normal. Defer to medicine
HTN, resume usual meds. Stop Imdur
Physical Exam
Vital Signs/Labs
Vital Signs
Temp Pulse Resp BP Pulse Ox
98.2 F 85 18 134/96 96
05/09/24 07:30 05/09/24 07:30 05/09/24 07:30 05/09/24 07:30 05/09/24 07:30
05/09/24 07:38
05/09/24 07:38
Triglycerides 190 mg/dl (10-149) H 05/08/24 06:23
LDL Cholesterol, Calc 107 mg/dl 05/08/24 06:23
VLDL Cholesterol, Calc 38 mg/dl (0-30) H 05/08/24 06:23
HDL Cholesterol 54 mg/dl 05/08/24 06:23
Free T4 1.01 ng/dl (0.78-2.19) 05/08/24 06:23
LAB Results
05/06/24 05/06/24 05/06/24
12:51 13:38 19:35
Troponin I Cancelled 0.027 0.026
05/07/24 05/07/24
00:42 06:56
Troponin I < 0.012 D < 0.012
Physical Exam
Constitutional: No acute distress
EENT: Anicteric
Cardiovascular: Rhythm & rate is regular and Pedal edema is absent
Respiratory: Respiratory effort normal and Lungs clear to auscul.
GI: Soft and Distention absent
Neuro/Psych: AO x 3
Other: Cath Site (no hematoma)
Data Reviewed
-
Date of Service: May 09, 2024
--- NOTE | 2024-05-09 11:10 | CM ---
Reviewed chart, received message from UR that patient is now inpatient instead of obs. Patient functioning at independent level per nursing staff.
Plan: Case management will continue to follow and assist with discharge planning. Home when stable.
--- NOTE | 2024-05-09 13:38 | W.PN.HOSP.TC ---
Today's Communication/Plan
-
Follow-up 24-hour urine calcium
Hold levothyroxine for 4 days, resume at lower dose
Plan for external loop recorder at discharge
Assessment / Plan
Assessment / Plan
#Recurrent syncope
-High suspicion for cardiac etiology based off of history of episodes, family history of sudden cardiac
-Additionally, she does have associated chest pain/arm pain which raises suspicion for more
-No ischemic ECG findings upon arrival, troponin negative x 3; orthostatic vital signs negative
-Would rate her as a high pretest probability per symptoms and family history
-Echocardiogram yesterday was normal, preserved LVEF, normal valves and diastology
-Cardiology following, cardiac cath yesterday with CAD but no high-grade lesions/culprit lesions
-Planning for external loop recorder, potential implantable loop recorder after 1 month
#Hypercalcemia
-Suspicion for primary hyperparathyroidism; PTH 49, calcium 10.8 on arrival, vitamin D normal
-Cannot rule out paraneoplastic or granulomatous disease at this time though suspicion is low
-No signs or symptoms associated with calcium, stable at 10.4-10.8
-PTHrP, 1,25 OH vitamin D levels are pending; undergoing 24-hour urine calcium
Plan
-Follow-up results of 24-hour urine calcium for confirmation of primary
-Trend daily BMP while here
#Hypothyroidism -- currently overtreated with levothyroxine regimen
-Unclear etiology, Home regimen includes levothyroxine 75 mcg daily
-No signs or symptoms of thyroid dysfunction as of this time
-TSH here was <0.02 with free T4 WNL
Plan
-Holding levothyroxine for 4 days, will resume at 50 mcg dose afterwards
-Will need follow-up with endocrinology and PCP for repeat TSH outpatient
#Chronic transaminitis
-Very mildly elevated, AST 41 and ALT 55; remainder of LFTs normal
-Will continue to trend LFTs while here, consider RUQ US if worsening
DVT prophylaxis: Subcutaneous heparin
Diet: N.p.o. after midnight
CODE STATUS: Full code
Anticipated Discharge: Within 24 hours
Subjective/Interval History
-
Date of Service: May 09, 2024
Seen and examined at the bedside. No acute events overnight. States that she had a brief episode where she felt slightly lightheaded. No events on telemetry that coincide with it. Also mentions that she feels a little bit constipated, requested
stool softener and laxative which I ordered.
She otherwise remains hemodynamically stable, afebrile, on room air this morning
Denies chest pain, shortness of breath, fevers or chills, nausea, vomiting, diarrhea, urinary issues, abnormal bleeding or bruising, paresthesias or weakness
Objective Data
-
Labs:
Laboratory Results
05/09/24
07:38
WBC 7.4
Hgb 13.3
Hct 36.4 L
Plt Count 207 D
Sodium 141
Potassium 4.2
Chloride 105
Carbon Dioxide 25
BUN 12
Creatinine 0.7
Glucose 113 H
Calcium 10.7 H
Total Bilirubin 0.7
AST 40 H
ALT 50 H
Alkaline Phosphatase 90
Vital Signs:
Vital Signs
Temp Pulse Resp BP Pulse Ox
98.2 F 97 16 117/72 95
05/09/24 12:00 05/09/24 12:00 05/09/24 12:00 05/09/24 12:00 05/09/24 12:00
I&O
05/08/24 05/09/24 05/10/24
06:59 06:59 06:59
Intake Total 780 / 780 1200 / 1200
Output Total 650 / 650
Balance 780 / 780 550 / 550
Review of Systems
-
History Source: Patient
All other systems: Reviewed and negative
Physical Exam
-
General: Well Nourished, No Apparent Distress, Comfortable and Obese
HEENT: Normocephalic, Atraumatic, Moist Mucous Membranes and Anicteric
Respiratory: Clear to Auscultation and Non Labored Respirations; Negative Wheezes, Rales or Rhonchi
Cardiac: Regular Rhythm and S1/S2; Negative Murmur, Rub, JVD or Gallop
GI: Soft, Nontender, Nondistended and Normal Bowel Sounds
Musculoskeletal: No Clubbing, No Cyanosis and No Edema
Skin: Warm and Dry; Negative Rash or Jaundice
Neuro: AO x 3, Nonfocal/Grossly Intact and Central Nerve's Intact; Negative Tremors
Data Reviewed
-
Labs: Labs Reviewed by me, Discussed with Patient and Discussed with Family
[2024-05-09] MEDS: MIRALAX 17 GRAMS PO (14:34)
[2024-05-09] MEDS: SENOKOT-S 1 TABLET PO (14:34)
[2024-05-09] MEDS: CRESTOR 20 MG PO (17:41)
[2024-05-09 19:23] LABS: 24 Hour Urine Total Volume 1800 ml
[2024-05-09 19:47] LABS: 24 Hour Urine Calcium 250.2 mg/day; Urine Calcium 13.9 mg/dl
[2024-05-10 03:00] VITALS: BP 126/83
[2024-05-10 07:30] VITALS: BP 132/81
[2024-05-10 08:22] LABS: % Basophils 1.2 % (0-2); % Eosinophils 6.2 % (0-6); % Immature Granulocytes 0.3 % (0-0.5); % Lymphocytes 42.4 % (20.5-51.1); % Monocytes 10.4 % (1.7-9.3); % Neutrophils 39.5 % (42.2-75.2); Absolute Basophils 0.1 10^3/uL (0-0.2); Absolute Eosinophils 0.4 10^3/uL (0-0.7); Absolute Lymphocytes 2.8 10^3/uL (1.2-3.4); Absolute Monocytes 0.7 10^3/uL (0.1-0.6); Absolute Neutrophils 2.6 10^3/uL (1.4-6.5); Hematocrit 33.3 % (37.0-47.0); Hemoglobin 12.3 g/dL (12.0-16.0); Mean Corp Hgb Conc. 36.9 g/dL (33.0-37.0); Mean Corpuscular Hgb 32.3 pg (27.0-31.0); Mean Corpuscular Volume 87.4 fL (81.0-99.0); Nucleated Red Blood Cells % 0 %; Red Blood Cell Count 3.81 10^6/uL (4.20-5.40); Red Cell Dist. Width 11.4 % (11.5-14.5); White Blood Cell Count 6.7 10^3/uL (4.8-10.8)
[2024-05-10 08:41] LABS: Blood Urea Nitrogen 12 mg/dl (7-17); Calcium 10.6 mg/dl (8.4-10.2); Carbon Dioxide 23 mmol/L (22-30); Chloride 106 mmol/L (98-107); Estimated Creatinine Clearance 66 ml/min; Glucose 94 mg/dl (70-99); Magnesium 1.9 mg/dl (1.6-2.3); Potassium 4.4 mmol/L (3.5-5.1); Sodium 140 mmol/L (135-145); eGFR > 60.00
[2024-05-10] MEDS: HEPARIN SC (09:01)
[2024-05-10] MEDS: LOW STRENGTH ASPIRIN 81 MG PO (09:02)
[2024-05-10] MEDS: TOPROL XL 25 MG PO (09:02)
--- NOTE | 2024-05-10 09:12 | CM ---
Observed pt changed to inpatient . Admission notified to change to inpatient.
IMM given signed on chart.
Pt declined need for VN .
PLAN Home no needs
[2024-05-10 10:19] VITALS: BP 125/85
--- NOTE | 2024-05-10 10:26 | W.PN.HOSP.TC ---
Today's Communication/Plan
-
possible d/c if moves bowels and still feels OK
Assessment / Plan
Assessment / Plan
pt is a 73 year old female
Recurrent syncope--High suspicion for cardiac etiology based off of history of episodes, family history of sudden cardiac (EKG and tele WNL despite having episode this AM, ECHO done this admission also normal)--other etiologies...vagal (pt
constipated), primary hyperparathyroid (calcium increased), orthostatic (last ortho vitals were borderline)--Cardiology following, cardiac cath 05/08/24 with CAD but no high-grade lesions/culprit lesions--Planning for external loop recorder,
potential implantable loop recorder after 1 month--consider neuro eval as outpt as well, consider MRI, EEG as outpt too
Hypercalcemia--Suspicion for primary hyperparathyroidism; PTH 49, calcium 10.8 on arrival, vitamin D normal--Cannot rule out paraneoplastic or granulomatous disease at this time though suspicion is low--PTHrP, 1,25 OH vitamin D levels are pending;
undergoing 24-hour urine calcium
Hypothyroidism -- currently overtreated with levothyroxine regimen--Unclear etiology, Home regimen includes levothyroxine 75 mcg daily--No signs or symptoms of thyroid dysfunction as of this time--TSH here was <0.02 with free T4 WNL--resume lower
dose synthroid
constipation--will try suppository
Chronic transaminitis--Very mildly elevated, AST 41 and ALT 55; remainder of LFTs normal--Will continue to trend LFTs while here, consider RUQ US if worsening
DVT prophylaxis: Subcutaneous heparin
CODE STATUS: Full code
Anticipated Discharge: Within 24 hours
Subjective/Interval History
-
Date of Service: May 10, 2024
pt had episode this AM of chest pain and feeling faint--EKG normal--tele Sinus
Objective Data
-
Labs:
Laboratory Results
05/10/24
07:16
WBC 6.7
Hgb 12.3
Hct 33.3 L
Plt Count
Sodium 140
Potassium 4.4
Chloride 106
Carbon Dioxide 23
BUN 12
Creatinine 0.7
Glucose 94
Calcium 10.6 H
Vital Signs:
max temp for 24 hours
05/09/24
23:00
Temp 99.4 F
Vital Signs
Temp Pulse Resp BP Pulse Ox
97.9 F 98 16 125/85 98
05/10/24 07:30 05/10/24 10:19 05/10/24 10:19 05/10/24 10:19 05/10/24 10:19
I&O
05/09/24 05/10/24 05/11/24
06:59 06:59 06:59
Intake Total 1200 / 1200 1200 / 1200
Output Total 650 / 650 1400 / 1400
Balance 550 / 550 -200 / -200
Review of Systems
-
All other systems: Reviewed and negative
Abdomen/GI: Reports Constipated
Neuro: Reports Other (lightheaded)
Physical Exam
-
General: Well Developed, Well Nourished and No Apparent Distress
HEENT: Normocephalic and Atraumatic; Negative Oxygen
Respiratory: Clear to Auscultation; Negative Wheezes or Rhonchi
Cardiac: Regular Rhythm and S1/S2; Negative Murmur
GI: Soft, Nontender, Nondistended and Normal Bowel Sounds
Musculoskeletal: No Clubbing, No Cyanosis and No Edema
Neuro: Awake and Alert
Psych: Anxious
[2024-05-10 12:00] VITALS: BP 113/80; BP 124/79; BP 131/83; PULSE 75; PULSE 77; PULSE 88
[2024-05-10] MEDS: COLACE 100 MG PO (13:01)
[2024-05-10] MEDS: MIRALAX 17 GRAMS PO (13:01)
--- NOTE | 2024-05-10 14:13 | W.DCSUMMARY ---
Discharge Summary
Discharge Data
Date of Admission: 05/06/24
Date of Discharge: 05/10/24
-
Pending Results: Yes
Additional Pending Results:
PTH related peptide, 1, 25 vitamin D level
Hospital Course
Primary care physician : Priscilla Campoverde
Principal Discharge diagnosis : Recurrent syncope with high suspicion for cardiac etiology, hypercalcemia, hypothyroidism, constipation
Chronic Discharge diagnosis : Chronic transaminitis
Hospital Course : Patient was a 73-year-old female who was sitting on her porch in a rocking chair when she began to feel unwell. She felt lightheaded with a sense of doom, became sweaty and unresponsive. She quickly regained consciousness but
then passed out again. After she regained consciousness she complained of chest pain. Paramedics arrived and found her hypotensive but she did take a sublingual nitroglycerin prior to that. The day of admission was her third visit to the ED for
chest pain. She describes it as pressure with associated sweating and shortness of breath. She had dizziness with unsteadiness when she stands up. Chest pain is intermittent. She had a syncopal episode 2 weeks prior. She was scheduled to
follow-up with Dr. Don for both outpatient echocardiogram, and stress test. Patient was admitted.
Problem #1: Recurrent syncope with high suspicion for cardiac etiology. Patient has a history of sudden cardiac in her family. She had an episode this morning prior to discharge of feeling lightheaded with chest pain. EKG was normal and
telemetry was also normal sinus rhythm without tachycardia or bradycardia. She was seen in consultation by cardiology. Echocardiogram done this admission was also normal. She has follow-up with cardiology for loop recorder. She did have cardiac
catheterization 05/08/2024 which showed coronary artery disease but no high-grade stenosis or lesions. Patient had head and neck CTA which as noted below without any significant acute abnormalities. CT angiography was also done which did not show
any acute abnormalities. Other etiologies to consider would be outpatient neurologic evaluation, MRI, EEG as well as the possibility of this being related to the elevated calcium and/or vagal causes. Will defer to patient's primary care physician
for further testing.
Problem #2: Hypercalcemia. Patient's calcium level has been elevated in the upper 10 region, 10.8, 10.9 or so. In fact, 05/03/2024 she has a lab value of 11.1. 25-hydroxy vitamin D has been checked and is within normal limits at 51.4, vitamin D1,
25 is pending at this time. Intact PTH is 49.4 which is within normal limits, PTH related peptide is pending. It does not appear clear that this is primary hyperparathyroidism. It may be reasonable for endocrine consultation as an outpatient.
Ionized calcium was also not checked during this hospitalization. Magnesium was within normal limits. 24-hour urine for calcium was 250.2 with urine calcium level randomly of 13.9.
Problem #3: Hypothyroidism. TSH was checked which showed a result of less than 0.02 with free T4 in the normal range. As an outpatient, patient has been lowered from 75 mcg to 50 mcg of Synthroid daily but she has not picked up the 50 mg yet.
Synthroid was held here in the hospital and can be restarted at 50 mcg daily. Once she starts that, she should have repeat thyroid function test in approximately 3 to 4 weeks.
Problem #4: Constipation. Patient reported no bowel movement since 05/06. She has received Colace, MiraLAX, and suppository has been prescribed. Patient has not had a bowel movement yet but prefers to go home.
Problem #5: Chronic transaminitis. This was stable during her hospitalization. Medications were continued as able.
Patient feels well and would like to go home. She is stable for discharge at this time. She knows she is not to drive. If there are any questions regarding this dictation or her hospital stay, please not hesitate to call. Our office number is
[phone].
Important imaging findings :
HEAD AND NECK CTA IMPRESSION: No evidence of acute intracranial abnormality.
No significant narrowing of the carotid bulbs or proximal internal carotid arteries bilaterally. Calcification involving the cavernous internal carotid arteries bilaterally, with no findings to suggest a focal greater than 50% diameter reduction.
Normal appearance of the anterior cerebral and middle cerebral arteries bilaterally.
Dominant left vertebral artery with smaller caliber right vertebral artery. No significant narrowing of the vertebral or basilar arteries, with no findings to suggest dissection.
The sella turcica appears to be empty by CT imaging. This is often an incidental finding of no clinical significance, although it does have an association with idiopathic intracranial hypertension. Many patients are asymptomatic and
endocrinologically normal, although with some increasing reports of variable hypopituitarism and hyperprolactinemia.
Top normal diameter of the ascending aorta, short axis diameter of 3.[address] ANGIOGRAPHY IMPRESSION:
1.No evidence of aortic dissection. There is dilation of the ascending aorta measuring up to 4.1 cm.
2. No additional acute findings in the chest. There is a 4 mm pleural-based nodule within the posterior right lower lobe. Follow-up may be considered as clinically warranted.
3. Partially visualized right renal collecting system which appears mildly prominent. Further evaluation with ultrasound may be considered as clinically warranted.
Procedure findings :
CARDIAC CATH CONCLUSIONS:
1:�Normal left ventricular function with EF 67%
2:�Mild to moderate dilation of the ascending aorta. Of note, CTA done this admission measures the ascending aorta at 4.1 cm
3. Moderate CAD as described-iFR of the LAD and RCA disease shows these lesions are not flow-limiting
4. Continue evaluation for recurrent syncope. Will discuss placement of implantable loop recorder with the admitting cardiology team
Discharge Plan
-
Patient Disposition: Home (Routine Discharge)
Discharge Diagnosis/Procedures: Recurrent syncope with high suspicion for cardiac etiology status post cardiac cath, hypercalcemia, hypothyroidism, constipation, chronic transaminitis
Condition: Good
Diet: Low Sodium
Activity: With assistance
Driving Restrictions: No driving
Bathing Restrictions: None
Others Tests: media monitor. Dr. Don's office will call you to arrange.
Stand Alone Forms: DC Instructions- Cath/EP Lab
Referrals:
Priscilla Campoverde MD [Family Provider] - in less than 1 week
Wilfredo Don MD [Active] - 05/28/24 4:00 pm
Prescriptions:
New
rosuvastatin 40 mg Tablet
20 mg PO QPM Qty: 30 0RF
acetaminophen 325 mg Tablet
650 mg PO Q4HPRN PRN (Reason: mild pain/TONY/temp> 100.4F) Qty: 0 0RF
polyethylene glycol 3350 [HealthyLax] 17 gram Powder In Packet
17 g PO DAILY Qty: 0 0RF
levothyroxine 50 mcg Tablet
50 mcg PO DAILY @ 0600 Qty: 30 0RF
Continued
lisinopril 10 MG tablet
10 mg PO DAILY
aspirin 81 mg Tablet,Chewable
81 mg PO DAILY
metoprolol succinate 25 mg Tablet Extended Release 24 Hr
25 mg PO DAILY
Discontinued
levothyroxine 75 MCG tablet
75 mcg PO DAILY
Patient Comments:
05/06/24: Patient instructed to decrease dose to 50mcg daily, still has not gotten the 50mcg tablets so she is currently taking 75mcg daily.
isosorbide mononitrate 30 mg Tablet Extended Release 24 Hr
30 mg PO DAILY
Discharge Orders:
Discharge Patient (As Directed); Ordered 05/10/24
Ordered By: Felecia Lujan
Discharge Date and Time
Print Language: SOUTH AFR[place]
[2024-05-10 15:45] VITALS: BP 130/85
[2024-05-11 02:19] LABS: Vitamin D 1,25 Dihydroxy 64.8 pg/mL (19.9-79.3)
[2024-05-13 17:29] LABS: PTH Related Peptide LC-MS/MS 2.3 pmol/L (0.0-3.4)
== END 2024-05-10 16:05 | disposition home or self-care (01) | DRG 287 ==
LOC: 3 WEST ACU 10:46
PROVIDERS: Emergency Medicine; Internal Medicine; Nurse Practitioner; ADMITTING PHYSICIAN Hospitalist; ATTENDING PHYSICIAN Internal Medicine; CONSULT PHYSICIAN Internal Medicine Cardiovascular Disease; EMERGENCY PHYSICIAN Emergency Medicine; FAMILY PHYSICIAN Family Medicine
PROC: 4A033BC Measurement of Arterial Pressure, Coronary, Percutaneous Approach (ICD-10-PCS; 2024-05-08)
PROC: B211YZZ Fluoroscopy of Multiple Coronary Arteries using Other Contrast (ICD-10-PCS; 2024-05-08)
PROC: B215YZZ Fluoroscopy of Left Heart using Other Contrast (ICD-10-PCS; 2024-05-08)
PROC: 4A023N7 Measurement of Cardiac Sampling and Pressure, Left Heart, Percutaneous Approach (ICD-10-PCS; 2024-05-08)
DX: I25.110 Atherosclerotic heart disease of native coronary artery with unstable angina pectoris (principal); I10 Essential (primary) hypertension; R74.01 Elevation of levels of liver transaminase levels; E78.00 Pure hypercholesterolemia, unspecified; I77.810 Thoracic aortic ectasia; E83.52 Hypercalcemia; K59.00 Constipation, unspecified; I95.1 Orthostatic hypotension; E03.9 Hypothyroidism, unspecified; Z79.890 Hormone replacement therapy; Z79.82 Long term (current) use of aspirin; Z79.899 Other long term (current) drug therapy; Z82.49 Family history of ischemic heart disease and other diseases of the circulatory system
CPT/HCPCS: 71275; 80048; 80053; 80061; 81050; 82248; 82306; 82340; 82652; 83519; 83735; 83970; 84439; 84443; 84484; 85025; 85347; 93005; 93306; 93458; 93571; 93572; 99285; C1769; C1894; Q9950; Q9967

== ENCOUNTER → 2024-06-17 07:47 | Outpatient (REF) | payer MEDICARE, OTHER, SELFPAY | LOC: RAD 07:47 | PROVIDERS: ATTENDING PHYSICIAN Physician Assistant; FAMILY PHYSICIAN Family Medicine | DX: R74.8 Abnormal levels of other serum enzymes (principal); R55 Syncope and collapse | CPT/HCPCS: 76700; 93880 ==